=== PATIENT | female | born 1990 | race Caucasian/White ===

== ENCOUNTER → 2017-04-08 | Day surgery (SDC) | payer OTHER ==
[2017-03-18 11:55] VITALS: Ht 162.6 cm; Wt 86.4 kg
[~2017-04-08] VITALS: Ht 162.6 cm; Wt 86.4 kg
[~2017-04-08] MED LIST: ATROPINE SULFATE 0.1 MG/ML 5ML SYR IV PRN; DEXAMETHASONE SOD INJ 4 MG/ML VIAL ONE; EpHEDrine SULFATE INJ 50 MG/ML AMP IV PRN; FENTANYL CITRATE INJ 50 MCG/1 ML 2 ML VIAL ONE; IBUPROFEN 200 MG TAB ONE; IBUPROFEN 600 MG TAB PO PRN; KETOROLAC TROMETHAMINE 30 MG/ML VIAL IV. PRN; LACTATED RINGER'S 1000ML 1,000 ML IV SCH; LIDOCAINE HCL 2% 2 ML VIAL (20MG/ML) ONE; METOCLOPRAMIDE HCL INJ 5 MG/ML 2 ML VIAL IV PRN; MIDAZOLAM HCL 1 MG/ML 2ML VIAL ONE; NURSING VERBAL MED ORDER ONE; ONDANSETRON INJ 2 MG/ML 2 ML VIAL IV PRN; ONDANSETRON INJ 2 MG/ML 2 ML VIAL ONE; OXYCODONE/ACETAMINOPHEN 5-325 TAB PO PRN; PROMETHAZINE HCL INJ 12.5 MG in SODIUM CHLORIDE 0.9% 50ML 50 ML IV PRN; PROPOFOL IV EMULSION 10 MG/ML 20 ML VIAL IV ONE; SCOPOLAMINE 1.5 MG TDSY TD ONE; SODIUM CHLORIDE 0.9% 1000ML 1,000 ML IV SCH
--- NOTE | 2017-04-08 11:59 | History & Physical Bridge - [place] ---
H&P Re-Evaluation Bridge Note: I have examined the patient, reviewed the History & Physical and in the interval since the performance of the History & Physical I have noted the following changes of clinical significance: No changes noted
--- NOTE | 2017-04-08 12:02 | Discharge Instructions-SurgCtr ---
Discharge Instructions Date of Service Apr 08, 2017. Visit Reason for Visit: Intermenstrual Bleeding Discharge Discharge Diagnosis / Problem: D&C Hysteroscopy for endometrial polyps Discharge Goals Goal(s): Specific goals Activity Recommendations Activity Limitations: per Instructions/Follow-up section Anesthesia . Post Anesthesia Instructions: If you have had General Anesthesia or IV Sedation: * Do not drive today. * Resume driving when surgeon permits. * Do not make important decisions or sign legal documents today. * Call surgeon for: 1. Temperature elevations greater than 101 degrees F. 2. Uncontrollable pain. 3. Excessive bleeding. 4. Persistent nausea and vomiting. 5. Medication intolerance (nausea, vomiting or rash). * For nausea and vomiting use only clear liquids such as: tea, soda, bouillon until nausea subsides, then gradually increase diet as tolerated. * If you have any concerns or questions, call your surgeon's office. If physician is unavailable and it is an emergency, call 911 or go to the nearest emergency room. . Instructions / Follow-Up Instructions / Follow-Up ACTIVITY RECOMMENDATIONS: * Avoid tampons, douching, hot tubs, pools, and intercourse until bleeding has stopped. * May shower as usual. * No strenuous activity for 24-48 hours. After 24-48 hours, you may do anything you feel like doing (driving and sports are okay). SPECIAL CARE INSTRUCTIONS: Special Diet: * Mild nausea may occur in the immediate post-operative period. * Take clear liquids such as tea, cola or bouillon until all nausea has subsided; you may then resume your normal diet. Special Care: * Light bleeding and vaginal spotting can last from a few days to 3-4 weeks. Call your doctor if bleeding becomes heavier than the heaviest part of your period. * Check your temperature twice a day for one week. If it goes above 100.4 degrees Fahrenheit (38.0 Celsius), notify your doctor. * Call your doctor's office for an appointment for 6 weeks after your surgery. FOLLOW-UP VISIT: Call your doctor's office for an appointment for 6 weeks after your surgery. Diet Recommendations Home Diet: no limitations, resume previous diet Pending Studies Studies pending at discharge: no Medical Emergencies . Who to Call and When: Medical Emergencies: If at any time you feel your situation is an emergency, please call 911 immediately. . Non-Emergent Contact Non-Emergency issues call your: Primary Care Provider . . "Provider Documentation" section prepared by Sharlene Perez. .
--- NOTE | 2017-04-08 12:52 | OPERATIVE REPORT ---
DATE OF OPERATION: 04/08/2017 PREOPERATIVE DIAGNOSES: Intermenstrual bleeding and suspected endometrial polyps. POSTOPERATIVE DIAGNOSIS: Same. PROCEDURE: D&C, hysteroscopy. SURGEON: Dr. Sharlene Perez. ASSIST: None. ESTIMATED BLOOD LOSS: 10 mL. COMPLICATIONS: None. DISPOSITION: Stable to the recovery room. DESCRIPTION: Candi was placed on the table in dorsal lithotomy position with candy-cane stirrups, prepped and draped in standard sterile fashion and a hard time-out was taken. The bladder was emptied of urine via straight catheterization. Weighted and Crespo speculum were used to identify the cervix and the anterior lip was then grasped with a single-tooth tenaculum. The cervix was serially dilated to allow passage of a 5 mm hysteroscope. Hysteroscope was then introduced. Ostia were seen bilaterally, although of note, a small polypoid projection of tissue is very close to the internal opening of the left fallopian tube. It does not appear to have occluded. There are 3 or more decent sized polyps on the posterior surface of the uterus in the lower segment. Scope was then withdrawn and a sharp curettage was carried out retrieving several pieces of polypoid-appearing tissue as well as endometrial curettings polyp forceps were used to retrieve the last bits of tissue and then the scope was reintroduced. The cavity was seen to be restored to a normal clear shape without evidence of residual polyps. Ostia were seen bilaterally and once again a small flap of tissue was seen right at the entrance of the left fallopian tube, but this did not appear to be occlusive and the flap of tissue removed back and forth easily allowing fluid to pass through. Most of the flap had been removed during curettage, a small amount it remained was not felt to be worth the effort to recurette, especially given the potential for injury or perforation when working just close to the ostia. For this reason, it was left in place. All instruments were then removed and the patient was transferred in stable condition to the recovery room. I attest to the content of the Intraoperative Record and any orders documented therein. Any exceptions are noted below. TAZ
[2017-04-08] MEDS: FENTANYL CITRATE INJ 50 MCG/1 ML 2 ML VIAL IV PRN ×3 (13:02→13:30)
[2017-04-08 14:00] VITALS: TEMP 36.4
[2017-04-08 14:24] VITALS: BP 103/67; PULSE 48; O2SAT 98
--- NOTE | 2017-04-08 14:30 | Anesthesiology Progress Note ---
Anesthesia Post Op Note Date & Time Apr 08, 2017 at 14:30 Vital Signs Pain Intensity: 3 Vital Signs Past 12 Hours Date Time Temp Pulse Resp B/P (MAP) Pulse Ox O2 Delivery O2 Flow Rate FiO2 04/08/17 14:24 48 16 103/67 (79) 98 Room Air 04/08/17 14:00 36.4 48 16 116/76 (89) 99 Room Air 04/08/17 13:50 48 11 112/63 97 04/08/17 13:50 47 11 04/08/17 13:48 36.4 44 12 112/63 97 Room Air 04/08/17 13:45 46 13 108/64 98 04/08/17 13:45 46 13 04/08/17 13:40 46 13 04/08/17 13:40 46 13 117/68 98 04/08/17 13:35 56 14 125/63 99 04/08/17 13:35 61 14 04/08/17 13:30 47 18 04/08/17 13:30 47 18 118/68 100 04/08/17 13:25 46 17 04/08/17 13:25 45 17 119/70 100 04/08/17 13:20 45 10 109/67 100 04/08/17 13:20 46 10 04/08/17 13:15 48 10 04/08/17 13:15 47 10 111/66 100 04/08/17 13:10 49 13 107/64 100 04/08/17 13:10 49 13 04/08/17 13:05 46 16 04/08/17 13:05 47 16 113/66 100 04/08/17 13:00 41 16 04/08/17 13:00 41 16 119/75 100 04/08/17 12:55 43 13 122/73 100 04/08/17 12:55 44 13 04/08/17 12:50 41 27 04/08/17 12:50 41 27 124/72 99 04/08/17 12:45 42 22 04/08/17 12:45 42 22 127/76 99 04/08/17 12:40 43 22 04/08/17 12:40 44 22 120/78 100 04/08/17 12:35 48 12 120/75 99 04/08/17 12:35 49 12 04/08/17 12:35 36.3 46 16 120/75 98 Mask 6 10/11/17 11:15 36.6 53 16 108/70 (83) 96 Room Air Notes Mental Status: alert / awake / arousable, participated in evaluation Pt Amnestic to Procedure: Yes Nausea / Vomiting: adequately controlled Pain: adequately controlled Airway Patency, RR, SpO2: stable & adequate BP & HR: stable & adequate Hydration State: stable & adequate Anesthetic Complications: no major complications apparent
== END | disposition home or self-care (01) ==
LOC: X.SURG 11:05
PROVIDERS: ATTEND Obstetrics & Gynecology
DX: N84.0 Polyp of corpus uteri (principal)

== ENCOUNTER 2020-12-11 07:53 | Inpatient (IN) ==
[2020-12-11] MEDS ORDERED: OXYTOCIN 30 UNITS/500 ML BAG IV PRN ×3 (08:36→21:16)
[2020-12-11 09:04] LABS: Hematocrit (blood only) 34.9 % (37-47); Hemoglobin 12.3 g/dL (12.0-16.0); Mean Corpuscular Hemoglobin 31.1 pg (25-34); Mean Corpuscular Hgb Conc 35.2 g/dL (32-36); Mean Corpuscular Volume 88.1 fL (80-100); Platelet Count 129 K/uL (130-400); RDW Coefficient of Variation 13.4 % (11.5-14.5); RDW Standard Deviation 42.2 fL (36.4-46.3); Red Blood Count 3.96 M/uL (4.2-5.4); White Blood Count 7.52 K/uL (4.8-10.8)
[2020-12-11] MEDS: LACTATED RINGER'S 1,000 ML IV PRN ×4 (09:36→19:40)
--- NOTE | 2020-12-11 09:39 | History & Physical Report ---
Date of Service December 11, 2020 Assessment & Plan (1) Velamentous insertion of umbilical cord: (2) : 30 y/o at 40 4/7 wga presenting for post EDC IOL, c/b velamentous cord insertion VSS Fetus cat 1 Labor - will start with pitocin. Discussed anticipated course of labor, arom when able GBS neg epidural PRN Admission and Anticipated Discharge Date Admission Date: December 11, 2020 History of Present Illness Chief Complaint: IOL Primary Care Provider: Kishore Vazquez MD 30 y/o at 40 4/7 wga w/ SURESH 12/07 by LMP 03/02 presents for post-edc IOL. +FM, denies ctx, LOF, VB PNI: Velamentous cord Past [employer]IES [employer] Hx: G1 2019 SAB G2 current Menarche 12, q28d cycles denies hx STIs denies hx abnl paps, 05/09/20 neg cytology Allergies Allergy/AdvReac Type Severity Reaction Status Date / Time No Known Allergies Allergy Verified 12/10/20 14:53 Home Medications Medication Instructions Recorded Confirmed Type prenat.vits,carroll,tex-qwqy-ysarv 1 tab PO DAILY 01/16/20 12/11/20 History Patient History Medical History Encounter for gynecological examination with Papanicolaou smear of cervix Hx of varicella Missed Surgical History H/O dilation and curettage H/O oral surgery Family History Mother Drug abuse Hypertension Grandfather (Maternal) Diabetes Denies family history of Ovarian cancer Prostate cancer Dyslipidemia Myocardial infarction Breast cancer Cancer Social History Smoking Status: Never smoker Hx Alcohol Use: Yes (not with ) Hx Substance Use: No Preferred Language: Gabonese Communication Ability: Effective Beliefs That Will Affect Care: None marital status: marital status details: Clifford Wadsworth (31) [phone] Current Living Situation: Spouse Current Living Situation Comment: lives with spouse, no pets current occupational status: employed 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 Feels Safe at Home: Yes Dental Care, Regularly: Yes Physical Activity Frequency: 3-4 Times per Week Physical Exam Constitutional: WD/WN, vitals as above Respiratory: normal respiratory effort; no respiratory distress and no labored breathing Genitourinary: OB Exam Abdomen: + vertex and + estimated weight (8-9lbs) Manual OB Exam: + cervical dilation 3 cm, + cervical effacement 50% and + station high OB Exam Monitor Tracing: + external FHT monitor used, + external uterine monitor used (irreg ctx) and + category I (135/mod/+accel/-decel) Results & Data ([facility]) Vital Signs (Past 12 Hours) Vital Signs Pulse BP 12/11/20 08:03 105 H 132/70 Laboratory Results Initial OB Labs 05/08/2020 Blood Type & RH O positive Antibody Screen negative HCT/HGB 40.2/13/9 Platelets 183 Rubella immune RPR non-reactive HBsAg non-reactive HIV non-reactive MCV 87 -GCT 96 quad neg GBS neg Diagnostic Findings 11/13 EFW 54%, AC 65%, DVP 5.9, R lat placenta Coding Level of Care Code None Diagnoses Velamentous insertion of umbilical cord O43.129 Z34.90
--- NOTE | 2020-12-11 13:26 | Labor Progress Brief Note ---
Date of Service December 11, 2020 Subjective starting to feel some ctx Assessment & Plan (1) Velamentous insertion of umbilical cord: (2) : 30 y/o at 40 4/7 wga presenting for post EDC IOL, c/b velamentous cord insertion VSS Fetus cat 1 Labor - pit at 7, now s/p arom. Continue titration GBS neg epidural PRN Admission and Anticipated Discharge Date Admission Date: December 11, 2020 Physical Exam Genitourinary: Manual OB Exam: + cervical dilation (3-4), + cervical effacement 50%, + station -2 and + amniotic fluid (AROM clear) OB Exam Stephanie tor Tracing: + external FHT monitor used, + external uterine monitor used (q2-3) and + category I (125/mod/+accel/-decel) Results & Data ([facility]) Vital Signs (Past 12 Hours) Vital Signs Temp Pulse Resp BP 12/11/20 13:12 70 119/62 12/11/20 12:30 18 12/11/20 12:00 18 12/11/20 11:36 71 118/69 12/11/20 11:30 18 12/11/20 10:30 18 12/11/20 10:10 88 122/66 12/11/20 10:00 18 12/11/20 08:03 105 H 132/70 12/11/20 08:00 98.4 F 18 Coding Level of Care Code None Diagnoses Velamentous insertion of umbilical cord O43.129 Z34.90
[2020-12-11] MEDS ORDERED: ePHEDrine sulfate 50 MG/ML AMP ONE (14:28)
[2020-12-11] MEDS ORDERED: SODIUM CHLORIDE 0.9% INJ 10 ML VIAL ONE (14:28)
[2020-12-11] MEDS ORDERED: fentaNYL citrate 100 MCG/2 ML VIAL ONE (14:29)
[2020-12-11] MEDS ORDERED: BUPIVACAINE 0.25% 30 ML VIAL ONE (14:29)
[2020-12-11] MEDS ORDERED: fentaNYL 2MCG/ML ROPIVACAINE 1.25MG/ML 100 ML BAG EPI ONE (14:29)
--- NOTE | 2020-12-11 14:46 | Anesthesiology Consultation ---
Date of Service December 11, 2020 Assessment & Plan (1) Encounter for pre-operative examination: Chart Review Chart Review: Acceptable Risk for Surgery and Patient NOT seen in Pre Admission Testing Consults Requested none History Height/Weight Height: 5 ft 4.5 in Weight: 99.337 kg Allergies Allergy/AdvReac Type Severity Reaction Status Date / Time No Known Allergies Allergy Verified 12/10/20 14:53 Medications Home Medications Medication Instructions Recorded Confirmed Last Taken prenat.vits,carroll,pxp-vbzh-ofydn 1 tab PO DAILY 01/16/20 12/11/20 12/10/20 21:00 Active Medications Generic Name Dose Route Start Last Admin Trade Name Freq PRN Reason Stop Dose Admin Lactated Ringer's 1,000 mls @ 125 mls/hr 12/11/20 08:36 12/11/20 14:44 Lr IV 12/13/20 08:35 999 mls/hr .Q8H PRN Administration L&D Protocol Protocol Oxytocin 30 units in 500 mls @ 7 mls/hr 12/11/20 08:39 12/11/20 11:30 Pitocin IV 12/13/20 08:38 0.42 units/hr .Q24H PRN 7 mls/hr Labor Induction/Augmentation Titration Protocol 0.42 UNITS/HR Past Medical History Medical History Encounter for gynecological examination with Papanicolaou smear of cervix Hx of varicella Missed Past Family History Family History Mother Drug abuse Hypertension Grandfather (Maternal) Diabetes Denies family history of Ovarian cancer Prostate cancer Dyslipidemia Myocardial infarction Breast cancer Cancer Past Surgical History Surgical History H/O dilation and curettage H/O oral surgery Social History Smoking Status: Never smoker Hx Alcohol Use: No (not with ) Hx Substance Use: No Physical Exam Vital Signs Last Vital Signs Temp 36.9 C 12/11/20 08:00 Pulse 61 12/11/20 14:43 Resp 18 12/11/20 12:30 BP 114/57 L 12/11/20 14:43 Pulse Ox 80 L 12/11/20 14:41 Testing Laboratory Results 12/11/20 08:50
[2020-12-11] MEDS ORDERED: NALOXONE HCL 1 MG in SODIUM CHLORIDE 0.9% 1000ML 1,000 ML IV PRN (15:20)
[2020-12-11] MEDS ORDERED: fentaNYL 2MCG/ML ROPIVACAINE 1.25MG/ML 100 ML BAG EPI PRN (15:20)
[2020-12-11] MEDS ORDERED: NALOXONE HCL 0.4 MG/1 ML VIAL/CARP IV PRN (15:20)
[2020-12-11] MEDS ORDERED: diphenhydrAMINE 50 MG/ML VIAL IV PRN (15:20)
[2020-12-11] MEDS ORDERED: ONDANSETRON INJ 2 MG/ML 2 ML VIAL IV PRN (15:20)
[2020-12-11] MEDS ORDERED: ePHEDrine sulfate 50 MG/ML AMP IV PRN (15:20)
--- NOTE | 2020-12-11 17:20 | Labor Progress Brief Note ---
Date of Service December 11, 2020 Subjective Comfortable w/ epidural Assessment & Plan (1) Velamentous insertion of umbilical cord: (2) : 30 y/o at 40 4/7 wga presenting for post EDC IOL, c/b velamentous cord insertion VSS Fetus cat 1 Labor - pit at 9, progressing nicely. Continue augmentation GBS neg epidural in place Admission and Anticipated Discharge Date Admission Date: December 11, 2020 Physical Exam Genitourinary: Manual OB Exam: + cervical dilation (3-4) 8 cm, + cervical effacement 90% and + amniotic fluid (AROM clear) OB Exam Monitor Tracing: + external FHT monitor used, + external uterine monitor used (q2-5) and + category I (125/mod/+accel/-decel) Results & Data ([facility]) Vital Signs (Past 12 Hours) Vital Signs Temp Pulse Resp BP Pulse Ox 12/11/20 17:16 93 H 96 12/11/20 17:11 98 H 120/66 98 12/11/20 17:06 62 94 12/11/20 17:01 66 95 12/11/20 16:56 65 97 12/11/20 16:55 77 116/62 12/11/20 16:51 71 96 12/11/20 16:46 78 97 12/11/20 16:41 77 119/63 97 12/11/20 16:36 83 96 12/11/20 16:31 75 95 12/11/20 16:26 65 110/59 L 95 12/11/20 16:21 72 96 12/11/20 16:16 82 96 12/11/20 16:11 63 93 12/11/20 16:09 74 110/57 L 12/11/20 16:06 61 95 12/11/20 16:01 56 L 94 12/11/20 15:56 59 L 95 12/11/20 15:55 70 113/59 L 12/11/20 15:51 57 L 94 12/11/20 15:46 71 96 12/11/20 15:41 63 94 12/11/20 15:38 84 113/65 12/11/20 15:36 90 96 12/11/20 15:35 75 94 12/11/20 15:34 70 113/62 12/11/20 15:31 82 108/72 96 12/11/20 15:30 97.9 F 75 18 94 12/11/20 15:28 78 107/58 L 12/11/20 15:26 78 96 12/11/20 15:25 70 115/67 12/11/20 15:22 71 116/64 94 12/11/20 15:21 95 H 97 12/11/20 15:19 82 113/58 L 12/11/20 15:17 68 119/56 L 12/11/20 15:16 71 97 12/11/20 15:14 65 132/63 12/11/20 15:13 18 12/11/20 15:11 81 96 12/11/20 15:10 61 112/58 L 12/11/20 15:09 68 117/61 12/11/20 15:07 55 L 116/61 12/11/20 15:06 76 97 12/11/20 15:01 74 96 12/11/20 15:00 18 12/11/20 14:58 68 118/60 12/11/20 14:56 67 98 12/11/20 14:51 78 98 12/11/20 14:46 76 99 12/11/20 14:43 61 114/57 L 12/11/20 14:41 133 H 80 L 12/11/20 14:30 18 12/11/20 14:11 75 133/74 12/11/20 13:30 98.1 F 18 12/11/20 13:12 70 119/62 12/11/20 13:00 18 12/11/20 12:30 18 12/11/20 12:00 18 12/11/20 11:36 71 118/69 12/11/20 11:30 18 12/11/20 10:30 18 12/11/20 10:10 88 122/66 12/11/20 10:00 18 12/11/20 08:03 105 H 132/70 12/11/20 08:00 98.4 F 18 Coding Level of Care Code None Diagnoses Velamentous insertion of umbilical cord O43.129 Z34.90
[2020-12-11] MEDS ORDERED: METHYLERGONOVINE MALEATE 0.2 MG/ML AMP IM STA (20:29)
[2020-12-11] MEDS ORDERED: CARBOPROST TROMETHAMINE 250 MCG/ML AMPUL IM ONE (20:37)
[2020-12-11] MEDS ORDERED: CALCIUM CARBONATE 500 MG CHEWABLE TAB PO PRN (21:03)
[2020-12-11] MEDS ORDERED: cefOXitin 2,000 MG in DEXTROSE 5% 50 ML IV STA (21:04)
--- NOTE | 2020-12-11 21:04 | Delivery Summary ---
Vaginal Delivery Summary Date of Service December 11, 2020 PREOPERATIVE DIAGNOSIS: 1. Single intrauterine at 40 4/7 wga 2. Velamentous cord insertion POSTOPERATIVE DIAGNOSIS: 1. Single intrauterine at 40 4/7 wga 2. Velamentous cord insertion 3. Delivered PROCEDURE: 1. Normal spontaneous vaginal delivery. SURGEON: Diana Ch MD ANESTHESIA: Epidural. ESTIMATED BLOOD LOSS: 500 mL FLUIDS: Continuous LR. URINE OUTPUT: None. COMPLICATIONS: None. CONDITION: Stable. INDICATIONS: 30 y/o at 40 4/7 wga presented today for post-EDC IOL. On arrival, she was approx 3cm. She was started on pitocin and underwent artificial rupture of membranes. She received an epidural for pain control. She then progressed to complete and desired to push. FINDINGS: A viable male with Apgars of 9 and 9 at 1 and 5 minutes respectively. SPECIMEN: Placenta, cord blood OPERATIVE REPORT: The patient progressed to 10 cm, 100% effaced and +2 station, pushed over intact perineum with anesthesia to deliver a viable male , Apgars as above. Head of delivered in JOBY position. Tight nuchal cord was present and delivered through. Body and shoulders were delivered without difficulty. was delivered to maternal abdomen and nursing staff. Delayed cord clamping was performed for 60 seconds. Cord was clamped and cut. Cord blood was obtained. Placenta delivered spontaneously intact with 3-vessel cord. IV oxytocin and fundal massage but there was still lower uterine atony. Methergine x 1 and 800mcg cytotec were given for hemostasis. This improved it for a short period of time however there was again lower uterine segment atony and so it was swept for clots and hemabate x 1 was given. There was then appropriate hemostasis. Vagina, cervix, perineum, and placenta were inspected. A deep second degree laceration and a left vaginal wall laceration were noted and repaired in the usual fashion using 3-0 Vicryl. The second degree was reinforced with 2-0 vicryl prior to the standard repair. Rectal exam was performed to confirm no stitches in the vagina. Sponge and needle counts correct x2. No sponges were left behind. Mother and stable in immediate period. Vaginal Delivery Summary and 2nd Degree [facility] [place]ag[place] Delivery Charge Delivery Type Details: and 2nd Degree LAC
[2020-12-11] MEDS ORDERED: BENZOCAINE 20% AER SPR 82.5 GM CAN EXT PRN (21:16)
[2020-12-11] MEDS ORDERED: DIPHTHERIA/TETANUS/PERTUSSIS 0.5 ML SYR/VIAL IM ONE (21:16)
[2020-12-11] MEDS ORDERED: ACETAMINOPHEN 325 MG TAB PO PRN (21:16)
[2020-12-11] MEDS ORDERED: miSOPROStoL 100 MCG TAB PR ONE (21:16)
[2020-12-11] MEDS ORDERED: bisacodyL 10 MG SUPP PR PRN (21:16)
[2020-12-11] MEDS ORDERED: HYDROCORTISONE ACETATE 25 MG SUPP PR PRN (21:16)
[2020-12-11] MEDS ORDERED: SUPERCREAM 0.870% 15 GM JAR EXT PRN (21:16)
[2020-12-11] MEDS ORDERED: METHYLERGONOVINE MALEATE 0.2 MG/ML AMP ONE (22:40)
--- NOTE | 2020-12-11 23:17 | Anesthesia Procedure Note ---
Date of Service December 11, 2020 Anesthesia Post Epidural Note Vital Signs Vital Signs: Temp Pulse Resp BP Pulse Ox 36.8 C 86 18 106/55 L 96 12/11/20 22:41 12/11/20 23:11 12/11/20 22:41 12/11/20 23:11 12/11/20 22:31 Pain Intensity Abdomen: Pain Intensity: 5 Notes Mental Status: alert / awake / arousable and participated in evaluation Nausea / Vomiting: adequately controlled Pain: adequately controlled Airway Patency, RR, SpO2: stable & adequate BP & HR: stable & adequate Hydration State: stable & adequate Neuraxial Anesthesia: was administered and sensory block is resolving Anesthetic Complications: no major complications apparent and Pt Satisfied with anesthetic care Epidural: Removed without complications and With tip intact
[2020-12-12] MEDS: IBUPROFEN 600 MG TAB PO PRN ×4 (00:30→18:47)
--- NOTE | 2020-12-12 05:54 | Obstetrical Progress Note ---
Date of Service <Ej Serra MD - Last Filed: 12/12/20 06:35> December 12, 2020 Assessment & Plan <Ej Serra MD - Last Filed: 12/12/20 06:35> (1) (spontaneous vaginal delivery): Candi is a 30 y/o female who is now PPD #0/1 following IOL with subsequent around ~2100hr 06/15 at 40+ weeks. Delivery c/b PPH w/ EBL ~500cc, t/w methergine -> cytotec -> hemabate with good control thereafter. - Monitor for bleeding in setting of PPH d/t uterine atony. VSS. UOP adequate. Asymptomatic from anemic perspective. F/U H&H - Feels well today. Eating well, voiding well, ambulating well. - Pain well controlled with ibuprofen - Routine PPD care -- OOB, ambulation, diet - After discharge will have [address] Ch. (2) hemorrhage: Subjective <Ej Serra MD - Last Filed: 12/12/20 06:35> Candi is a 30 y/o female who is now PPD #0/1 following IOL with subsequent around ~2100hr 06/15 at 40+ weeks. Delivery c/b PPH w/ EBL ~500cc, t/w methergine -> cytotec -> hemabate with good control thereafter. Reports feeling well overall this morning. Endorses mild abdominal cramping pain well managed on analgesics. Voiding without difficulty. Tolerating meals well and able to ambulate some. Some persistent lochia with some improvement this morning - bleeding has slowed down quite a bit, clot passed smaller than a golf ball. Breast feeding. Review of Systems Denies fever, chills, sweats Denies shortness of breath, difficulty breathing, chest pain, palpitations, chest pressure. Denies breast pain. Denies dysuria. Denies headache or changes in vision. Physical Exam <Ej Serra MD - Last Filed: 12/12/20 06:35> General: Alert, oriented. No acute distress. Cardiac: Regular rate and rhythm, no murmurs/rubs/gallops. Respiratory: Clear to auscultation bilaterally a/p, no wheezes/rales/rhonchi. No increased work of breathing. Symmetrical chest rise. No respiratory distress. Abdomen: Soft, nontender, nondistended. Bowel sounds present. Uterus: Uterine fundus firm, palpable 2 cm below umbilicus. Lower Extremities: No lower extremity edema or swelling. No deep calf pain. Hilaria's negative bilaterally. Results & Data ([facility]) <Ej Serra MD - Last Filed: 12/12/20 06:35> Vital Signs (Past 12 Hours) Vital Signs Temp Pulse Pulse Resp BP BP Pulse Ox 12/12/20 03:30 36.9 C 79 18 118/72 98 12/12/20 00:45 37.2 C 90 18 101/62 97 12/11/20 23:26 90 107/57 L 12/11/20 23:11 86 106/55 L 12/11/20 22:56 75 104/54 L 12/11/20 22:41 36.8 C 86 18 121/56 L 12/11/20 22:31 89 96 12/11/20 22:26 85 114/54 L 96 12/11/20 22:21 86 96 12/11/20 22:16 83 95 12/11/20 22:12 88 115/60 12/11/20 22:11 87 20 96 12/11/20 22:06 100 H 98 12/11/20 22:01 87 96 12/11/20 21:56 87 115/56 L 98 12/11/20 21:51 93 H 98 12/11/20 21:46 91 H 97 12/11/20 21:41 103 H 18 119/58 L 95 12/11/20 21:36 86 97 12/11/20 21:31 84 98 12/11/20 21:30 87 91 12/11/20 21:26 82 18 114/59 L 95 12/11/20 21:21 75 12/11/20 21:20 80 91 12/11/20 21:16 93 12/11/20 21:11 78 18 115/58 L 96 12/11/20 21:07 89 91 12/11/20 21:06 89 95 12/11/20 21:04 74 103/58 L 12/11/20 21:02 82 94/51 L 12/11/20 21:01 111 H 97 06/15/21 20:56 36.8 C 84 20 109/54 L 94 12/11/20 20:54 75 111/55 L 12/11/20 20:52 75 109/58 L 12/11/20 20:51 88 96 12/11/20 20:50 83 111/61 12/11/20 20:48 86 108/55 L 12/11/20 20:46 94 H 108/58 L 96 12/11/20 20:44 84 111/58 L 12/11/20 20:42 93 H 118/66 12/11/20 20:41 93 H 96 12/11/20 20:40 86 111/61 12/11/20 20:37 95 H 110/58 L 12/11/20 20:36 87 96 12/11/20 20:31 90 96 12/11/20 20:26 96 H 123/71 96 12/11/20 20:24 86 120/56 L 12/11/20 20:22 88 122/56 L 12/11/20 20:21 86 95 12/11/20 20:16 92 H 96 12/11/20 20:11 91 H 98 12/11/20 20:10 92 H 125/70 12/11/20 20:06 78 95 12/11/20 20:01 119 H 96 12/11/20 19:56 109 H 96 12/11/20 19:55 96 H 138/63 12/11/20 19:51 135 H 97 12/11/20 19:46 104 H 96 12/11/20 19:41 90 97 12/11/20 19:39 92 H 131/61 12/11/20 19:36 107 H 95 12/11/20 19:35 22 12/11/20 19:31 99 H 97 12/11/20 19:26 114 H 95 12/11/20 19:24 88 124/56 L 12/11/20 19:21 98 H 96 12/11/20 19:16 70 96 12/11/20 19:11 87 96 12/11/20 19:10 73 120/56 L 12/11/20 19:06 80 97 12/11/20 19:01 80 96 12/11/20 19:00 36.6 C 20 12/11/20 18:56 86 96 12/11/20 18:54 78 116/62 12/11/20 18:51 84 96 12/11/20 18:46 86 96 12/11/20 18:41 75 96 12/11/20 18:40 70 117/64 12/11/20 18:36 88 96 12/11/20 18:31 91 H 97 12/11/20 18:30 18 12/11/20 18:26 89 97 12/11/20 18:25 96 H 116/58 L 12/11/20 18:21 93 H 98 12/11/20 18:16 90 96 12/11/20 18:11 76 97 12/11/20 18:09 74 108/56 L 12/11/20 18:06 82 96 12/11/20 18:01 77 97 12/11/20 18:00 18 12/11/20 17:56 68 96 12/11/20 17:55 75 122/60 12/11/20 17:51 80 96 <Diana Ch MD - Last Filed: 12/12/20 09:37> Co-Signing Physician Notes Resident Physician Supervision Note: I interviewed and examined the patient. Discussed with Dr. Serra and agree with findings and plan as documented in the note. Any exceptions or clarifications are listed here: PP1, meeting all milestones. Denies s/s anemia, iron ordered. Continue routine pp care Documented By: Diana Ch MD Resident Activity Tracking <Ej Serra MD - Last Filed: 12/12/20 06:35> Resident Involvement: Resident Care Provided Care Provided: Adult Hospital Medicine and OB Delivery
[2020-12-12 07:11] LABS: Hematocrit (blood only) 24.5 % (37-47); Hemoglobin 8.8 g/dL (12.0-16.0); Mean Corpuscular Hemoglobin 30.9 pg (25-34); Mean Corpuscular Hgb Conc 35.9 g/dL (32-36); Mean Platelet Volume 10.4 fL (7.4-10.4); Platelet Count 120 K/uL (130-400); RDW Coefficient of Variation 13.4 % (11.5-14.5); RDW Standard Deviation 41.1 fL (36.4-46.3); Red Blood Count 2.85 M/uL (4.2-5.4)
[2020-12-12] MEDS: DOCUSATE SODIUM 100 MG CAP PO SCH ×2 (08:13→20:54)
[2020-12-12] MEDS: PRENATAL VITAMIN 1 TAB PO SCH (08:13)
[2020-12-12] MEDS ORDERED: NON-FORMULARY MEDICATION (Prenat.Vits,Cal,Min-Iron-Folic tablet) PO SCH (09:00)
[2020-12-12] MEDS: FERROUS SULFATE 325 MG TAB PO SCH (12:00)
[2020-12-12] MEDS ORDERED: bisacodyL 5 MG TABEC PO SCH (20:00)
[2020-12-13 06:47] LABS: Hematocrit (blood only) 21.8 % (37-47); Hemoglobin 7.6 g/dL (12.0-16.0)
--- NOTE | 2020-12-13 07:02 | Obstetrical Progress Note ---
Date of Service <Ej Serra MD - Last Filed: 12/13/20 08:09> December 13, 2020 Assessment & Plan <Ej Serra MD - Last Filed: 12/13/20 08:09> (1) (spontaneous vaginal delivery): Candi is a 30 y/o female who is now PPD #1-2 following IOL with subsequent around ~2100hr 06/15 at 40+ weeks. Delivery c/b PPH w/ EBL ~500cc, t/w methergine -> cytotec -> hemabate with good control thereafter. - In setting of pph - bleeding slowed significantly. Hgb 7.6 this AM from 8.8 yesterday. VSS. Asymptomatic from anemic perspective. Continue iron supplementation - Feels well today. Eating well, voiding well, ambulating well. - Pain well controlled with ibuprofen - Routine PPD care -- OOB, ambulation, diet - Anticipate d/c today - After discharge will have [address] Ch. (2) hemorrhage: Subjective <Ej Serra MD - Last Filed: 12/13/20 08:09> Candi is a 30 y/o female who is now PPD #1-2 following IOL with subsequent around ~2100hr 06/15 at 40+ weeks. Delivery c/b PPH w/ EBL ~500cc, t/w methergine -> cytotec -> hemabate with good control thereafter. Reports feeling well overall this morning. Endorses mild abdominal cramping pain well managed on analgesics. Voiding without difficulty. Tolerating meals well and able to ambulate some. Some persistent lochia with some improvement this m orning - bleeding has slowed down quite a bit. Breast feeding. Physical Exam <Ej Serra MD - Last Filed: 12/13/20 08:09> General: Alert, oriented. No acute distress. Cardiac: Regular rate and rhythm, no murmurs/rubs/gallops. Respiratory: Clear to auscultation bilaterally a/p, no wheezes/rales/rhonchi. No increased work of breathing. Symmetrical chest rise. No respiratory distress. Abdomen: Soft, nontender, nondistended. Bowel sounds present. Uterus: Uterine fundus firm, palpable 2 cm below umbilicus. Lower Extremities: No lower extremity edema or swelling. No deep calf pain. Hilaria's negative bilaterally. Results & Data ([facility]) <Ej Serra MD - Last Filed: 12/13/20 08:09> Vital Signs (Past 12 Hours) Vital Signs Temp Pulse Resp BP 12/12/20 23:58 36.8 C 87 20 103/64 <Tru Perez MD - Last Filed: 12/14/20 12:50> Co-Signing Physician Notes Patient seen and evaluated and agree with the above findings and plan. Stable for discharge Resident Activity Tracking <Ej Serra MD - Last Filed: 12/13/20 08:09> Resident Involvement: Resident Care Provided Care Provided: Adult Hospital Medicine and OB Delivery
[2020-12-13] MEDS: IBUPROFEN 600 MG TAB PO PRN ×2 (07:28→12:13)
[2020-12-13] MEDS: PRENATAL VITAMIN 1 TAB PO SCH (07:32)
[2020-12-13] MEDS: DOCUSATE SODIUM 100 MG CAP PO SCH (07:32)
[2020-12-13] MEDS: FERROUS SULFATE 325 MG TAB PO SCH (07:32)
== END 2020-12-13 15:15 | disposition home or self-care (01) | DRG 807 ==
LOC: 4S1 07:53 → 4S2 12-12 00:02

== ENCOUNTER 2024-09-13 07:56 | Inpatient (IN) ==
[2024-09-13] MEDS ORDERED: LIDOCAINE 1% LOCAL 20 ML VIAL INFIL PRN (08:00)
[2024-09-13] MEDS ORDERED: OXYTOCIN 30 UNITS/NSS 30 UNITS/500 ML BAG IV PRN ×2 (08:00→14:11)
[2024-09-13] MEDS ORDERED: SODIUM CHLORIDE 0.9% 100 ML IV PRN ×2 (08:02→09:43)
[2024-09-13] MEDS: LACTATED RINGER'S 1,000 ML IV PRN (08:48)
[2024-09-13 08:51] LABS: Hematocrit (blood only) 36.9 % (37.0-47.0); Hemoglobin 12.8 g/dl (12.0-16.0); Mean Corpuscular Hemoglobin 29.3 pg (25.0-34.0); Mean Corpuscular Hgb Conc 34.7 g/dL (32.0-36.0); Mean Corpuscular Volume 84.4 fL (80.0-100.0); Mean Platelet Volume 10.5 fL (9.4-12.4); Platelet Count 178 K/uL (130-400); RDW Coefficient of Variation 13.6 % (11.5-14.5); RDW Standard Deviation 42.1 fL (36.4-46.3); Red Blood Count 4.37 M/uL (4.20-5.40); White Blood Count 7.84 K/ul (4.8-10.8)
[2024-09-13] MEDS: OXYTOCIN 30 UNITS/NSS 30 UNITS/500 ML BAG IV PRN (09:15)
[2024-09-13] MEDS ORDERED: ePHEDrine sulfate 50 MG/ML AMP ONE (09:20)
--- NOTE | 2024-09-13 09:20 | History & Physical Report ---
Date of Service September 13, 2024 Assessment & Plan (1) : Plan: Admit to L&D. EFM/toco. Labs. D/t h/o hemorrhage with first delivery, will plan for the TXA as recommended by hematology, hemorrhage cart by room, 2u T&C through blood bank. OK for epidural when she desires. Pitocin. Admission and Anticipated Discharge Date Admission Date: September 13, 2024 History of Present Illness Chief Complaint: IOL Primary Care Provider: Michelle Lebron MD 34yo @ 39 11/02, here for IOL. and Delivery Plans Obesity (BMI between 35-39 @ beginning of ) *Growth US @ 32 wks Growth 36wks EFW 85%; AC 69% *Weekly NSTs @ 36wks ? Von-Willebrand's-low factor 8 activity *hematology consult 04/12/24 - conflicting vwd testing, will repeat pp - rec txa pp 15mg/kg IV, can repeat q8hr if need. DDAVP if persistent bleeding short interval--delivered 03/2023 on for elective iol for 09/13 not covid vaccinated--recommended. Allergies Allergy/AdvReac Type Severity Reaction Status Date / Time No Known Allergies Allergy Verified 09/12/24 10:25 Home Medications Medication Instructions Recorded Confirmed Type prenat.vits,carroll,msb-[id number]-xasuo 1 tab PO DAILY 01/16/20 09/12/24 History breast pump #1 ea 08/08/24 09/12/24 Rx Patient History Medical History Hx of varicella Missed hemorrhage Surgical History H/O dilation and curettage H/O oral surgery Family History Mother Drug abuse Hypertension Grandfather (Maternal) Diabetes Denies family history of Ovarian cancer Prostate cancer Dyslipidemia Myocardial infarction Breast cancer Cancer Social History Smoking Status: Never smoker Second Hand Exposure: No; Do You Dip or Chew Tobacco: No; Tobacco Cessation Education Requested by Patient: No Hx Alcohol Use: No Hx Substance Use: No Preferred Language: Uzbek Communication Ability: Effective Publication Specialist Required: No Beliefs That Will Affect Care: None marital status: marital status details: Clifford Wadsworth (35) [phone] Current Living Situation: Spouse Current Living Situation Comment: Clifford- 2 kids current occupational status: employed current occupation: [employer]- [employer] Other Information That Helps Us Care for You: No Feels Safe at Home: Yes Safety Concerns: Feels Safe At This Time Childhood Exposure to Second-Hand Smoke: Yes caffeine: Yes Dental Care, Regularly: Yes Physical Activity Frequency: 3-4 Times per Week Seatbelt Use: always Sunscreen Use: Yes Assistive Devices: None Review of Systems All systems reviewed & are unremarkable except as noted in HPI & below Physical Exam Physical Exam: T Cat 1 [place] 2 irreg SVE 5-6/80/-2, soft/mid Constitutional: WD/WN, vitals as above Respiratory: normal respiratory effort, lungs clear to auscultation no respiratory distress Cardiovascular: Rate/Rhythm: regular rate and regular rhythm Gastrointestinal (Abdomen): Inspection/Auscultation: abdomen normal to inspection Percussion/Palpation: abdomen soft; abdomen nontender Gravid. No s/s chorio or abruption. Skin: no rashes, warm and dry Psychiatric: A+Ox3, euthymic affect Results & Data Vital Signs (Past 12 Hours) Vital Signs Temp Pulse Resp BP Pulse Ox 09/13/24 09:18 94 H 96 09/13/24 08:34 85 121/59 L 09/13/24 08:32 37.0 C 85 18 121/59 L Coding Level of Care Code None Diagnoses Z34.90
[2024-09-13] MEDS ORDERED: TRANEXAMIC ACID 100 MG/ML 10 ML VIAL IV PRN (09:23)
[2024-09-13] MEDS ORDERED: SODIUM CHLORIDE 0.9% PF INJ 10 ML VIAL EPI STA (09:48)
[2024-09-13] MEDS ORDERED: NALOXONE HCL 0.4 MG/1 ML VIAL/CARP IV PRN (09:48)
[2024-09-13] MEDS ORDERED: NALOXONE HCL 1 MG in SODIUM CHLORIDE 0.9% 1,000 ML IV PRN (09:48)
[2024-09-13] MEDS ORDERED: LIDOCAINE 2% MPF LOCAL 5 ML VIAL EPI PRN (09:48)
[2024-09-13] MEDS ORDERED: SODIUM CHLORIDE 0.9% PF INJ 10 ML VIAL EPI PRN (09:48)
[2024-09-13] MEDS ORDERED: BUPIVACAINE 0.25% PF 30 ML VIAL EPI STA (09:48)
[2024-09-13] MEDS ORDERED: fentaNYL citrate PF 100 MCG/2 ML VIAL EPI STA (09:48)
[2024-09-13] MEDS ORDERED: NALBUPHINE HCL INJ 10 MG/ML AMP IV PRN (09:48)
[2024-09-13] MEDS ORDERED: LIDOCAINE 2%/EPINEPHRINE 1:200,000 20 ML PF EPI STA (09:48)
[2024-09-13] MEDS ORDERED: BUPIVACAINE 0.25% PF 30 ML VIAL EPI PRN (09:48)
[2024-09-13] MEDS ORDERED: fentaNYL citrate PF 100 MCG/2 ML VIAL EPI PRN (09:48)
[2024-09-13] MEDS ORDERED: ePHEDrine sulfate 50 MG/ML AMP IV PRN (09:48)
[2024-09-13] MEDS ORDERED: fentANYL 2 MCG/ML BUPIVacaine 0.125%-NSS 100ML BAG EPI PRN (09:48)
[2024-09-13] MEDS ORDERED: diphenhydrAMINE 50 MG/ML VIAL IV PRN (09:48)
[2024-09-13] MEDS ORDERED: ROPIVACAINE 0.5% PF 5 MG/ML 20 ML VIAL EPI PRN (09:48)
--- NOTE | 2024-09-13 09:48 | Anesthesiology Consultation ---
Date of Service September 13, 2024 Assessment & Plan Chart Review Chart Review: Acceptable Risk for Labor Epidural Consults Requested none History Height/Weight Height: 5 ft 4 in Weight: 111.584 kg Allergies Allergy/AdvReac Type Severity Reaction Status Date / Time No Known Allergies Allergy Verified 09/12/24 10:25 Medications Home Medications Medication Instructions Recorded Confirmed Last Taken prenat.vits,carroll,bbi-alqm-kmmav 1 tab PO DAILY 01/16/20 09/12/24 04/02/23 breast pump #1 ea 08/08/24 09/12/24 Unknown Active Medications Generic Name Dose Route Start Last Admin Trade Name Freq PRN Reason Stop Dose Admin Lactated Ringer's 1,000 mls @ 125 mls/hr 09/13/24 08:00 09/13/24 09:35 Lr IV 09/14/24 07:59 999 mls/hr .Q8H PRN Infusion L&D Protocol Protocol Oxytocin 30 units in 500 mls @ 1 mls/hr 09/13/24 08:02 09/13/24 09:45 Pitocin 30 Units/Nss IV 09/15/24 08:01 0.18 units/hr .Q24H PRN 3 mls/hr Labor Induction/Augmentation Titration Protocol 0.06 UNITS/HR Past Medical History Medical History Hx of varicella Missed hemorrhage Past Family History Family History Mother Drug abuse Hypertension Grandfather (Maternal) Diabetes Denies family history of Ovarian cancer Prostate cancer Dyslipidemia Myocardial infarction Breast cancer Cancer Past Surgical History Surgical History H/O dilation and curettage H/O oral surgery Social History Smoking Status: Never smoker Do You Dip or Chew Tobacco: No Hx Alcohol Use: No Hx Substance Use: No substance use type: does not use Physical Exam Vital Signs Last Vital Signs Temp 37.0 C 09/13/24 08:32 Pulse 84 09/13/24 09:43 Resp 18 09/13/24 08:32 BP 117/63 09/13/24 09:41 Pulse Ox 98 09/13/24 09:43 Testing Laboratory Results 09/13/24 08:26
[2024-09-13] MEDS: LIDOCAINE 2%/EPINEPHRINE 1:200,000 20 ML PF ONE (10:20)
[2024-09-13] MEDS: fentANYL 2 MCG/ML BUPIVacaine 0.125%-NSS 100ML BAG ONE (10:20)
[2024-09-13] MEDS: BUPIVACAINE 0.25% PF 30 ML VIAL ONE (10:22)
[2024-09-13] MEDS: fentaNYL citrate PF 100 MCG/2 ML VIAL ONE (10:22)
[2024-09-13] MEDS: SODIUM CHLORIDE 0.9% PF INJ 10 ML VIAL ONE (10:22)
[2024-09-13] MEDS ORDERED: TRANEXAMIC ACID / 0.7% NACL 1000MG/100ML BAG IV ONE (10:52)
--- NOTE | 2024-09-13 11:29 | Labor Progress Brief Note ---
Date of Service September 13, 2024 Subjective Comfortable with epidural. FHT Cat 1 [place] Q 2-3 SVE 6-7/80/-2 AROM clear fluid. Assessment & Plan Admission and Anticipated Discharge Date Admission Date: September 13, 2024 Results & Data Vital Signs (Past 12 Hours) Vital Signs Temp Pulse Resp BP Pulse Ox 09/13/24 11:28 108 H 98/54 L 09/13/24 11:23 97 H 99 09/13/24 11:18 97 H 97 09/13/24 11:13 68 119/57 L 98 09/13/24 11:08 92 H 89 L 09/13/24 11:07 79 94 09/13/24 11:03 107 H 98 09/13/24 11:00 16 09/13/24 11:00 16 09/13/24 10:58 67 98 09/13/24 10:57 107 H 111/66 09/13/24 10:53 76 108/58 L 98 09/13/24 10:48 93 H 109/65 98 09/13/24 10:43 82 97 09/13/24 10:42 78 117/67 09/13/24 10:40 84 116/65 09/13/24 10:38 80 117/69 99 09/13/24 10:36 70 109/60 09/13/24 10:34 85 108/55 L 09/13/24 10:33 85 98 09/13/24 10:32 71 114/55 L 09/13/24 10:30 77 103/59 L 09/13/24 10:28 81 112/61 98 09/13/24 10:26 76 114/62 09/13/24 10:25 16 09/13/24 10:25 16 09/13/24 10:24 68 114/55 L 09/13/24 10:23 68 98 09/13/24 10:22 64 112/58 L 09/13/24 10:20 59 L 16 115/57 L 09/13/24 10:19 79 125/60 09/13/24 10:18 70 99 09/13/24 10:16 72 120/60 09/13/24 10:13 76 99 09/13/24 10:11 72 125/61 09/13/24 10:08 82 98 09/13/24 10:03 72 99 09/13/24 09:58 76 99 09/13/24 09:53 83 99 09/13/24 09:48 82 97 09/13/24 09:43 84 98 09/13/24 09:41 82 117/63 09/13/24 09:38 78 97 09/13/24 09:33 81 98 09/13/24 09:28 90 98 09/13/24 09:26 81 121/67 09/13/24 09:23 83 98 09/13/24 09:18 94 H 96 09/13/24 08:34 85 121/59 L 09/13/24 08:32 37.0 C 85 18 121/59 L Coding Level of Care Code None
[2024-09-13] MEDS: CALCIUM CARBONATE 500 MG CHEWABLE TAB PO PRN (12:24)
[2024-09-13] MEDS: ONDANSETRON INJ 2 MG/ML 2 ML VIAL IV PRN (12:25)
--- NOTE | 2024-09-13 14:09 | Delivery Summary ---
Vaginal Delivery Summary Date of Service September 13, 2024 Vaginal Delivery Summary and 2nd Degree LAC Vaginal Delivery Summary: Pre-delivery diagnoses: 34yo @ 39 5/7, IOL, obesity, ?coagulopathy Post-delivery diagnoses: same Procedure: spontaneous vaginal delivery Surgeon: Thuy Mcnamara DO Complications: none Findings: Viable male . Apgars: 8/9 . Weight pending, please see nursery records Estimated QBL: 207cc Description of delivery: The patient progressed to complete with epidural anesthesia. She then began to push. She spontaneously vaginally delivered a viable from the cephalic presentation. The head delivered in LOP posit ion. The anterior shoulder delivered, followed by the posterior shoulder, followed by the body. No nuchal. The baby was placed on mother's abdomen and a spontaneous cry was heard. Delayed cord clamping was employed, and the cord was doubly clamped and cut. Cord blood was obtained. The placenta was delivered spontaneously intact with a 3-vessel cord. The uterus and vagina were swept of clots and debris. IV pitocin was given. The uterus became firm. The cervix, vagina, and perineum were inspected and 2nd degree perineal laceration noted. The tear extended to the anal sphincter muscle, but not through. This was supported with one figure of eight stitch of 2-0 Chromic, followed by standard repair of the 2nd degree repair with 3-0 Vicryl. Due to patient's questionable coagulopathy, per community living instructor recommendations, 1.6g TXA given and 1000mcg cytotec DC given to assist with maintaining uterine tone. Excellent hemostasis was observed. The mother and baby are recovering in stable and good condition in the room. Sponge, needle and instrument counts were correct x 2. Thuy Mcnamara DO [facility] Vaginal Delivery Charge Vaginal Delivery Codes: 34685 global code for the antepartum, delivery, and post- Delivery Type Details: and 2nd Degree LAC
[2024-09-13] MEDS ORDERED: HYDROCORTISONE ACETATE 25 MG SUPP PR PRN (14:11)
[2024-09-13] MEDS ORDERED: oxyCODONE/ACETAMINOPHEN 5mg/325mg TAB PO PRN (14:11)
[2024-09-13] MEDS ORDERED: bisacodyL 10 MG SUPP PR PRN (14:11)
--- NOTE | 2024-09-13 14:24 | Anesthesia Procedure Note ---
Date of Service September 13, 2024 Anesthesia Post Epidural Note Vital Signs Vital Signs: Temp Pulse Resp BP Pulse Ox 36.6 C 75 16 100/51 L 99 09/13/24 14:00 09/13/24 14:12 09/13/24 14:00 09/13/24 14:12 09/13/24 13:33 Notes Mental Status: alert / awake / arousable and participated in evaluation Nausea / Vomiting: adequately controlled Pain: adequately controlled Airway Patency, RR, SpO2: stable & adequate BP & HR: stable & adequate Hydration State: stable & adequate Neuraxial Anesthesia: was administered and sensory block is resolving Anesthetic Complications: no major complications apparent and Pt Satisfied with anesthetic care Epidural: Removed without complications and With tip intact
[2024-09-13] MEDS ORDERED: miSOPROStoL 200 MCG TAB PR ONE (14:29)
[2024-09-13] MEDS: DOCUSATE SODIUM 100 MG CAP PO SCH (21:13)
[2024-09-13] MEDS: ACETAMINOPHEN 325 MG TAB PO PRN (21:13)
[2024-09-13] MEDS: IBUPROFEN 600 MG TAB PO PRN (22:25)
[2024-09-13] MEDS: BENZOCAINE 20% SPRY 85 APPLN/85 GM CAN EXT PRN (22:26)
[2024-09-14] MEDS: PRENATAL VITAMIN 1 TAB PO SCH (07:30)
[2024-09-14 07:34] LABS: Hematocrit (blood only) 29.7 % (37.0-47.0); Hemoglobin 10.2 g/dl (12.0-16.0)
--- NOTE | 2024-09-14 07:52 | Obstetrical Progress Note ---
Date of Service September 14, 2024 Assessment & Plan (1) (normal spontaneous vaginal delivery): Plan Both mom and baby doing well. Discharge in the afternoon today as per protocol. Admission and Anticipated Discharge Date Admission Date: September 13, 2024 Supervising Physician Co-Signing Physician Notes Resident Physician Supervision Note: I was present with Dr. Richard during the history and exam. I discussed the case with the resident and agree with the findings and plan as documented in the note. Any exceptions or clarifications are listed here: PPD1 doing well. DC home today, followup 6w in office. Reviewed postop instructions. Documented By: Thuy Mcnamara, Subjective #1PPD Day following 34 Y F at 39+5 week POG. No active complains Both mom and baby doing well. Pain: Mild, intermittent Lochia: Moderate Diet: Regular Ob diet Gas: Aware of passing, no abdominal distension Peeing: Normal, no bladder distension Ambulation: Normally Review of Systems Review of Systems: As per HPI Physical Exam Physical Exam: General: Alert and oriented. No acute distress. CVS: S1 S2+ No murmurs, regular rhythm. Respiratory: CTA bilaterally. No rhonchi, wheezes, or crackles. No increased work of breathing. Abdomen: Bowel sound +. Soft, nontender Uterus: Fundus firm and palpable few cm below the umbilicus. Lower extremities: No LE edema. No deep calf pain. Results & Data Vital Signs (Past 12 Hours) Vital Signs Temp Pulse Resp BP Pulse Ox O2 Del Method 09/14/24 03:25 36.6 C 79 18 109/71 98 Room Air 09/13/24 23:55 36.5 C 88 16 110/74 96 Room Air 09/13/24 21:00 36.8 C 89 18 110/79 97 Room Air
[2024-09-14] MEDS: DIPHTHER/TETAN/PERTUS Vaccine (Tdap, Adol/Adult) 0.5mL IM ONE (12:27)
[2024-09-14] MEDS: bisacodyL 5 MG TABEC PO SCH (20:13)
[2024-09-14] MEDS ORDERED: miSOPROStoL 200 MCG TAB ONE (21:19)
--- NOTE | 2024-09-15 07:42 | Obstetrical Progress Note ---
Date of Service September 15, 2024 Assessment & Plan (1) (normal spontaneous vaginal delivery): Plan Mom doing well Baby is icteric with high total bilirubin. Will repeat bilirubin today at 8 AM. Can go home today, if no concern from pediatric side. Discharge today as per protocol. Admission and Anticipated Discharge Date Admission Date: September 13, 2024 Supervising Physician Co-Signing Physician Notes Patient seen independent of the resident and agree with the above findings and plan. Patient doing well on day 2 and stable for discharge. Provided written and verbal discharge instructions Subjective #2PPD Day following 34 Y F at 39+5 week POG. No active complains Mom doing well. Baby is icteric. Pain: Mild, intermittent Lochia: Moderate Diet: Regular Ob diet Gas: Aware of passing, no abdominal distension Peeing: Normal, no bladder distension Ambulation: Normally Review of Systems Review of Systems: As per HPI Physical Exam Physical Exam: General: Alert and oriented. No acute distress. CVS: S1 S2+ No murmurs, regular rhythm. Respiratory: CTA bilaterally. No rhonchi, wheezes, or crackles. No increased work of breathing. Abdomen: Bowel sound +. Soft, nontender Uterus: Fundus firm and palpable few cm below the umbilicus. Lower extremities: No LE edema. No deep calf pain. Results & Data Vital Signs (Past 12 Hours) Vital Signs Temp Pulse Resp BP O2 Del Method 09/14/24 23:44 36.5 C 70 16 113/72 Room Air 09/14/24 20:00 36.4 C L 63 16 136/77 Room Air
[2024-09-15 09:47] VITALS: PULSE 76; RESP 20; TEMP 98.4; O2SAT 97
[2024-09-15 11:41] VITALS: BP 109/71
== END 2024-09-15 15:09 | disposition home or self-care (01) | DRG 807 ==
LOC: 4S1 07:56 → 4E2 16:53